=== PATIENT | male | born 1960 | race Caucasian/White ===

== ENCOUNTER 2017-12-05 06:46 | Outpatient (CLI) | payer OTHER ==
--- NOTE | 2017-12-05 07:57 | XRAY Report ---
Reason: JOINT DERANGEMENT BILATERAL SHOULDERS Procedure Date: 12/05/2017 Accession Number: [id number] / [id number] Procedure: XR - Shoulder 3 View BILAT CPT Code: FULL RESULT: Bilateral Shoulder Radiography EXAM DATE: 12/05/2017 07:39 AM. CLINICAL HISTORY: JOINT DERANGEMENT BILATERAL SHOULDERS. COMPARISON: None. TECHNIQUE: 3 views each. FINDINGS: Right: Bones: No acute fracture lines. Mild subacromial spurring noted. Joints: The glenohumeral and acromioclavicular joints are normal in alignment. Mild joint space narrowing with osteophytes.. Soft tissues: The visualized hemithorax is unremarkable. No soft tissue swelling. Left: Bones: No acute fracture lines. Mild subacromial spurring. Joints: The glenohumeral and acromioclavicular joints are normal in alignment. Mild joint space narrowing with osteophytes.. Soft tissues: The visualized hemithorax is unremarkable. No soft tissue swelling. IMPRESSION: 1. Normal alignment without fracture or dislocation of the bilateral shoulders. 2. 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 3. Bilateral subacromial spurring is noted. RADIA
== END 2017-12-05 06:47 | disposition home or self-care (01) ==
LOC: DI 06:46
PROVIDERS: ATTEND Family Medicine
DX: M19.011 Primary osteoarthritis, right shoulder (principal); M19.012 Primary osteoarthritis, left shoulder

== ENCOUNTER 2018-10-26 09:06 | Outpatient (CLI) | payer OTHER ==
--- NOTE | 2018-10-26 12:08 | XRAY Report ---
Reason: PAIN IN RIGHT AND LEFT HAND, PAIN IN THENAR EMINEN Procedure Date: 10/26/2018 Accession Number: [id number] / [id number] Procedure: XRN - Hand 3 View BILAT CPT Code: FULL RESULT: EXAM: BILATERAL HAND RADIOGRAPHY EXAM DATE: 10/26/2018 09:43 AM. CLINICAL HISTORY: PAIN IN RIGHT AND LEFT HAND, PAIN IN THENAR EMINENCE. COMPARISON: None. TECHNIQUE: 3 views each hand. FINDINGS: Bones: Normal. No fractures or bone lesions. Joints: Moderate to severe degenerative changes at the bilateral first carpometacarpal joints. No other significant arthritic changes seen. No subluxations. Soft Tissues: Normal. No soft tissue swelling. IMPRESSION: Moderate to severe degenerative changes at the bilateral first carpometacarpal joints. RADIA
== END 2018-10-26 09:07 | disposition home or self-care (01) ==
LOC: DI.N 09:06
PROVIDERS: ATTEND Family Medicine
DX: M18.0 Bilateral primary osteoarthritis of first carpometacarpal joints (principal)

== ENCOUNTER 2020-01-26 07:58 | Outpatient (CLI) | payer OTHER ==
--- NOTE | 2020-01-28 08:39 | MRI Report ---
PROCEDURE: Shoulder RT W/O INDICATIONS: R SHLDR INT DERANGEMENT TECHNIQUE: Noncontrast oblique coronal T2 fast spin echo with fat saturation, oblique sagittal T1 spin echo and T2 fast spin echo with fat saturation, axial T1 spin echo and T2 fast spin echo with fat saturation t hrough the shoulder. COMPARISON: None. FINDINGS: Image quality: Excellent. Rotator cuff: There is full-thickness tearing of the mid and anterior super spinatus tendon at the hu meral insertion site, with medial retraction and atrophy. There is high-grade tearing of the posterio r fibers of the supraspinatus tendon. There is diffuse severe thinning of the anterior and mid infras pinatus tendon at the humeral insertion site. Moderate thinning of the posterior infraspinatus tendon at the humeral insertion site. Moderate infraspinatus atrophy. Teres minor is intact. Subscapularis demonstrates high-grade focal tearing within its midportion at the humeral insertion site extending t o the musculotendinous junction. No significant subscapularis atrophy. Bones and bursae: Superior subluxation of the humeral head is present. There is mild indentation of the superolateral aspect of the humeral head, with mild underlying ill-defined STIR signal elevation, possibly related to remote trauma. There is chronic appearing indentation of the posterior inferior bony glenoid, consistent with remote fracture deformity. No bone marrow contusions nor acute fracture s. The acromioclavicular interval is widened to 20 mm. acromion demonstrates conventional anatomy, wi thout an os acromiale. No pathologic subacromial/subdeltoid bursal fluid is present. Large glenohum eral joint effusion. Capsule and soft tissues: There is diffuse glenoid labral tearing. The long head of the biceps tendon demonstrates moderate diffuse T2 signal elevation, indicating tendinopathy. There is medial dislocat ion of the biceps tendon. Moderate fluid surrounds the biceps tendon. The rotator interval appears no rmal, without fibrosis. The coracohumeral ligament is normal in thickness. IMPRESSION: 1. Chronic appearing fracture deformities of the humeral head and posterior glenoid, consistent with remote trauma. No evidence of acute fracture. 2. Acromial clavicular separation. 3. Full-thickness tearing of most of the supraspinatus tendon, which demonstrates medial retraction a nd atrophy. 4. High-grade tearing of most of the infraspinatus tendon, which demonstrates atrophy. 5. Focal full-thickness tearing of the mid subscapularis tendon. 6. Biceps tendon tendinopathy and dislocation. Bicipital tendinitis. 7. Glenoid labral tearing. Reviewed by: Lizeth Mazariegos MD on 01/28/2020 8:38 AM PST Approved by: Lizeth Mazariegos MD on 01/28/2020 8:38 AM PST Station ID: [id number]
== END 2020-01-26 07:59 | disposition home or self-care (01) ==
LOC: DI 07:58
PROVIDERS: ATTEND Family Medicine
DX: M24.811 Other specific joint derangements of right shoulder, not elsewhere classified (principal); S43.101A Unspecified dislocation of right acromioclavicular joint, initial encounter; M75.101 Unspecified rotator cuff tear or rupture of right shoulder, not specified as traumatic; S43.431A Superior glenoid labrum lesion of right shoulder, initial encounter; M75.21 Bicipital tendinitis, right shoulder

== ENCOUNTER 2020-11-20 16:43 | Outpatient (CLI) | payer OTHER ==
--- NOTE | 2020-11-21 08:32 | XRAY Report ---
PROCEDURE: Finger(s) BILAT INDICATIONS: BILATERAL THUMB PAIN/ ARTHRITIS TECHNIQUE: AP hand, 2 views of the bilateral first finger(s) acquired. COMPARISON: None FINDINGS: Bones: No fractures or dislocations. [id number] bilateral first CMC joint osteoarthritic alvarado ges are seen. No gross bony erosive changes. No suspicious bony lesions. Soft tissues: No suspicious soft tissue calcifications. 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 No fracture or dislocation. No gross bony erosive changes. Reviewed by: Bryon Webster MD on 11/21/2020 8:31 AM PDT Approved by: Bryon Webster MD on 11/21/2020 8:31 AM PDT Station ID: [id number]
== END 2020-11-20 16:44 | disposition home or self-care (01) ==
LOC: DI.N 16:43
PROVIDERS: ATTEND Family Medicine
DX: M18.0 Bilateral primary osteoarthritis of first carpometacarpal joints (principal)

== ENCOUNTER 2022-05-03 07:45 | Outpatient (CLI) | payer OTHER ==
--- NOTE | 2022-05-03 10:22 | MRI Report ---
PROCEDURE: SHOULDER WO - RT INDICATIONS: RIGHT SHOULDER PAIN TECHNIQUE: Noncontrast oblique coronal T2 fast spin echo with fat saturation, oblique sagittal T1 spin echo and T2 fast spin echo with fat saturation, axial T1 spin echo and T2 fast spin echo with fat saturation a nd 3-D gradient echo through the shoulder. COMPARISON: Right shoulder MRI 01/26/2020 FINDINGS: Image quality: Excellent. Rotator cuff: Postsurgical changes are seen from prior rotator cuff repair. There is recurrent full-t hickness tearing of the supraspinatus and infraspinatus tendons with proximal tendon retraction relat amilcar to the superior humeral head fixation device by approximately 4.3 cm. The teres minor tendon is i ntact. There is full-thickness tearing of the supraspinatus tendon from its superior insertion with p roximal tendon retraction measuring up to 2.0 cm. There is moderate atrophy and grade 3 fatty infiltr ation of the infraspinatus muscle as well as grade 2 fatty infiltration of the supraspinatus and subs capularis muscles. Edema within the supraspinatus and subscapularis muscles may indicate superimposed low-grade strains. Bones and bursae: No acute trabecular bone injury. Surgical anchors are seen in the humeral head. 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 The humeral head is high riding and abuts the undersurface of th e acromion. Chronic posttraumatic deformity of the posterosuperior humeral head. Mild to moderate acr omioclavicular osteoarthrosis. A moderate amount of glenohumeral joint fluid communicates with a mode rate subacromial/subdeltoid bursal effusion. There is synovial hypertrophy in the axillary recess and posterior glenohumeral joint. Capsule and soft tissues: There is thickening and increased signal intensity within the superior and posterosuperior labrum, consistent with subacute to chronic tearing. There is marked thickening and i ncreased signal intensity within the biceps long head tendon, consistent with partial intrasubstance tearing superimposed on chronic tendinosis. The tendon demonstrates medial subluxation relative to th e superior intertubercular groove. Or glenohumeral ligament is not well seen, which may be secondary to prior postsurgical changes or chronic tearing. Fluid is seen with in the axillary recess. IMPRESSION: 1.Postsurgical changes from prior rotator cuff repair with recurrent full-thickness tearing of the montelongo praspinatus and infraspinatus tendons. The tendons are retracted approximately by up to 4.3 cm. There is moderate atrophy and grade 3 fatty infiltration of the infraspinatus muscle and grade 2 fatty inf iltration of the supraspinatus muscle. Humeral head is high riding and abuts the undersurface of the acromion. 2.Full-thickness tearing of the superior portion of the subscapularis muscle with approximately 2.0 c m proximal tendon retraction. Mild grade 2 fatty infiltration of the subscapularis muscle. 3.Mild edema within the subscapularis and supraspinatus muscles may indicate low-grade muscle strains . 4.Partial intrasubstance tearing of the biceps long head tendon superimposed on severe tendinosis and mild medial subluxation relative to the intertubercular groove. 5.Thickening and increased signal intensity within the superior posterosuperior labrum is consistent with subacute or chronic tearing. 6.[id number] acromioclavicular joint osteoarthrosis. Ununited os acromiale. 7.Moderate subacromial/subdeltoid bursal fluid communicates with the glenohumeral joint space. Mild s ynovial hypertrophy in the axillary recess. 8.Middle glenohumeral ligament is not well seen, which may be related to the prior surgery or capsula r injury. Fluid is seen in the soft tissues anterior and inferior to the glenohumeral joint. Reviewed by: Casey Ba MD on 05/03/2022 10:21 AM PDT Approved by: Casey Ba MD on 05/03/2022 10:21 AM PDT Station ID: [id number]
== END 2022-05-03 07:46 | disposition home or self-care (01) ==
LOC: DI 07:45
PROVIDERS: ATTEND Family Medicine
DX: M75.121 Complete rotator cuff tear or rupture of right shoulder, not specified as traumatic (principal); S46.111A Strain of muscle, fascia and tendon of long head of biceps, right arm, initial encounter; M19.011 Primary osteoarthritis, right shoulder